=== PATIENT | male | born 1990 | race African-American/Black ===

== ENCOUNTER 2018-09-05 14:47 | Emergency (ER) | payer SELFPAY ==
[~2018-09-05] VITALS: Ht 182.9 cm; Wt 102.1 kg
--- NOTE | 2018-09-05 14:47 | NUR ---
PT BB SELF FOR R HAND PAIN FROM PUNCTURE FROM GYM EQUIPMENT;PT AAOX4, PT ON MONITOR, VSS, PENDING ER PROVIDER EVAL
--- NOTE | 2018-09-05 15:14 | NUR ---
SEEN AND EXAMINED BY DR. BANKS.
[2018-09-05] MEDS ORDERED: LIDOCAINE 1%-EPI 1:100,000 20 ML VIAL ONE (15:18)
[2018-09-05] MEDS ORDERED: IBUPROFEN 600 MG TABLET PO ONE ×2 (15:58→16:00)
[2018-09-05] MEDS ORDERED: CEPHALEXIN MONOHYDRATE 500 MG CAPSULE PO ONE ×2 (15:58→16:00)
[2018-09-05] MEDS ORDERED: TDAP [DIPH/PERTUSSIS/TET] 0.5 ML VIAL IM ONE ×2 (16:00)
[2018-09-05] MEDS ORDERED: LIDOCAINE 1%-EPI 1:100,000 50 ML VIAL IJ ONE (16:00)
[2018-09-05 16:51] VITALS: BP 143/70
--- NOTE | 2018-09-05 16:53 | NUR ---
Patient discharged to home in stable condition. Written and verbal after care instructions given. Patient verbalizes understanding of instruction.
== END 2018-09-05 16:54 | disposition home or self-care (01) ==
LOC: ER 14:47
DX: S61.411A Laceration without foreign body of right hand, initial encounter (principal); Z60.2 Problems related to living alone; W22.8XXA Striking against or struck by other objects, initial encounter; Y93.89 Activity, other specified; Y92.89 Other specified places as the place of occurrence of the external cause; Y99.8 Other external cause status
CPT/HCPCS: 12001; 73110; 90471; 90715; 99283; A4606; A6402; A6403; J3490 ×2